=== PATIENT | female | born 1955 | race Caucasian/White ===

== ENCOUNTER 2024-03-05 09:02 | Observation (INO) ==
[~2024-03-05 09:02] MED LIST: Lidocaine 2% PF 5 ML VIAL ONE; Midazolam 2 mg/2 ml VIAL 1 mg/ml 2 ml VIAL (2 mg) ONE; Naloxone 0.4 mg VIAL 0.4 mg/ml 1 ml VIAL IV PRN; Ondansetron 4 mg VIAL 2 MG/ML 2 ml VIAL IV PRN; fentaNYL 100 mcg/2 ml 50 MCG/ML VIAL IV PRN; fentaNYL 100 mcg/2 ml 50 MCG/ML VIAL ONE
[2024-03-05] MEDS ORDERED: Buffered Lidocaine 1% SYRIN 1 ml ONE (09:34)
[2024-03-05] MEDS ORDERED: ceFAZolin 2 GM in NS PREMIX 2 GM/100 ML BAG IVPB ONE (09:34)
[2024-03-05] MEDS ORDERED: Tranexamic Acid 1 GM/100ML BAG 2,000 MG/200 ML BAG IV ONE (09:36)
[2024-03-05 09:42] LABS: Rapid COVID-19 Molecular Undetected (Undetected)
[2024-03-05] MEDS: Lactated Ringers 1000 ml BAG 1,000 ML IV SCH ×2 (10:02→16:37)
[2024-03-05] MEDS: Buffered Lidocaine 1% SYRIN 1 ml INTRADERM ONE (10:02)
[2024-03-05] MEDS ORDERED: Bupivacaine 0.25% SDV 30 ML ONE (10:55)
[2024-03-05] MEDS ORDERED: Dexamethasone IV 4 MG/ML VIAL 1 ml VIAL ONE (11:24)
[2024-03-05] MEDS ORDERED: Propofol 10 MG/ML 20 ML BTL ONE ×2 (11:46→13:12)
[2024-03-05] MEDS ORDERED: Ondansetron 4 mg VIAL 2 MG/ML 2 ml VIAL ONE (13:04)
[2024-03-05] MEDS ORDERED: Magnesium Hydroxide LIQ 30 ML UDC PO PRN (13:47)
[2024-03-05] MEDS ORDERED: Lactulose 30 ml UDC PO PRN (13:47)
[2024-03-05] MEDS ORDERED: Ondansetron ODT 4 mg TAB 4 MG TAB PO PRN (13:47)
[2024-03-05] MEDS ORDERED: Ondansetron 4 mg VIAL 2 MG/ML 2 ml VIAL IV PRN (13:47)
[2024-03-05] MEDS ORDERED: Morphine 2 MG/ML SYRINGE IV PRN (13:47)
[2024-03-05] MEDS ORDERED: Calcium Carb (TUMS) 500 mg CHEW TAB PO PRN (13:47)
[2024-03-05] MEDS: BUPIVACAINE **LIPOSOME/PF 13.3 MG/ML (266MG/ 20ML) VIAL (RESTRICTED) INFIL ONE (16:58)
[2024-03-05] MEDS: Magnesium Hydroxide LIQ 30 ML UDC PO SCH (20:48)
[2024-03-05] MEDS: ceFAZolin 2 GM in NS PREMIX 2 GM/100 ML BAG IVPB SCH (20:56)
[2024-03-06 07:04] LABS: Hematocrit 34.2 % (35-45); Hemoglobin 11.7 g/dL (11.5-14.3); Mean Platelet Volume 7.9 fL (7.5-11.2); Platelet Count 192 10^3/uL (150-450)
[2024-03-06 07:42] LABS: Calcium 8.4 mg/dL (8.6-10.3); Creatinine, Serum 0.63 mg/dL (0.51-0.95); Potassium 4.1 mmol/L (3.5-5.0); eGFR CKD-EPI 97.8 (>60)
[2024-03-06] MEDS: Vitamin THERAPEUTIC TAB PO SCH (08:21)
[2024-03-06 10:08] VITALS: BP 143/72
== END 2024-03-06 13:25 | disposition home or self-care (01) ==
LOC: OR 09:02 → SSU 09:02
PROVIDERS: ADMIT Orthopaedic Surgery Sports Medicine; ATTEND Orthopaedic Surgery Sports Medicine